=== PATIENT | male | born 1995 | race Caucasian/White ===

== ENCOUNTER 2017-02-12 11:10 | Emergency (ER) | payer OTHER ==
--- NOTE | ~2017-02-12 | CT52 ---
[facility] A Service [facility] RADIOLOGY TEXT RESULTS PATIENT: PRAVIN WATTS LOCATION: SED : 95 UNIT #: [id number] AGE: [address]: Nicole Crain PAC SEX: M ORDER DR: [id number] [place] [id number] MR#: [id number] Acc #: [id number] NAME: PRAVIN WATTS : 1995 SEX: M STUDY DATE/TIME: 02/12/2017 12:56 UNIT: SED ROOM: STUDY DESCRIPTION: CT Cervical Spine Wo Cont Attending Physician: Nicole Crain Pa-C Ordering Physician: Nicole Crain Pa-C Primary Care Physician: No Primary Care Physician MEDICAL IMAGING REPORT This report is preliminary unless electronic signature is present. EXAM CT of the cervical spine without contrast. DATE 02/12/2017 HISTORY 21-year-old male who fell down steps yesterday and hit head on concrete with loss of consciousness. Today with left posterior head and posterior neck pain. COMPARISON None PROCEDURE 2 mm axial images through the cervical spine without contrast. Sagittal and coronal reformatted images were obtained. This CT exam was performed with one or more of the following radiation dose reduction techniques: automatic exposure control, adjustment of mA and/or kV according to patient size, and iterative reconstruction. FINDINGS There is straightening of the normal cervical lordosis. Craniocervical junction is intact. No acute cervical spine fracture or subluxation is seen. Disc space height appears preserved. No fracture. No subluxation. No high-grade canal or foraminal stenosis is seen. Imaged lung apices appear clear. IMPRESSION No acute cervical spine findings. [facility] A Service [facility] RADIOLOGY TEXT RESULTS PATIENT: PRAVIN WATTS LOCATION: SED : 95 UNIT #: [id number] AGE: [address]: Fischbach,Candy S PAC SEX: M ORDER DR: Dictated by... Namrata Clark M.D. THIS IS AN ELECTRONICALLY VERIFIED REPORT Namrata Clark M.D. at 02/13/2017 8:48 AM RONEL/hitesh TD: 02/12/2017 14:38 JOB #: [id number] MEDICAL IMAGING REPORT Page 1 of 1
--- NOTE | ~2017-02-12 | CT71 ---
[facility] A Service of [facility] RADIOLOGY TEXT RESULTS PATIENT: PRAVIN WATTS LOCATION: SED : 95 UNIT #: [id number] AGE: [address]: Nicole Crain SEX: M ORDER DR: [id number] [address] [address] [id number] E MR#: [id number] Acc #: [id number] NAME: PRAVIN WATTS : 1995 SEX: M STUDY DATE/TIME: 02/12/2017 12:54 UNIT: SED ROOM: STUDY DESCRIPTION: CT Head Wo Contrast Attending Physician: Nicole Crain Pa-C Ordering Physician: Nicole Crain Pa-C Primary Care Physician: Primary Care Physician No MEDICAL IMAGING REPORT This report is preliminary unless electronic signature is present. EXAM Noncontrast CT head, 02/12/2017 HISTORY Fell down steps yesterday. Hit head on concrete with loss of consciousness. Left posterior head and neck pain today. COMPARISON None TECHNIQUE This CT exam was performed with one or more of the following radiation dose reduction techniques: automatic exposure control, adjustment of mA and/or kV according to patient size, and iterative reconstruction. FINDINGS Left posterior parietal scalp soft tissue swelling is present. No acute displaced calvarial fracture is identified. No acute intracranial hemorrhage, mass lesion, mass effect, midline shift or evidence of acute or evolving infarct. Ventricular configuration is within normal limits. IMPRESSION Left posterior parietal scalp soft tissue swelling. No acute intracranial findings. Dictated by... Namrata Clark M.D. THIS IS AN ELECTRONICALLY VERIFIED REPORT Namrata Clark M.D. at 02/13/2017 8:48 AM RONEL/myles [facility] A Service of [facility] RADIOLOGY TEXT RESULTS PATIENT: PRAVIN WATTS LOCATION: SED : 95 UNIT #: [id number] AGE: [address]: Nicole Crain SEX: M ORDER DR: TD: 02/12/2017 14:21 JOB #: [id number] MEDICAL IMAGING REPORT Page 1 of 1
== END 2017-02-12 13:38 | disposition home or self-care (01) ==
LOC: SED 11:10
DX: S16.1XXA Strain of muscle, fascia and tendon at neck level, initial encounter (principal); S00.93XA Contusion of unspecified part of head, initial encounter; F17.210 Nicotine dependence, cigarettes, uncomplicated; W19.XXXA Unspecified fall, initial encounter; Y92.009 Unspecified place in unspecified non-institutional (private) residence as the place of occurrence of the external cause
CPT/HCPCS: 70450; 72125; 99284